=== PATIENT | male | born 1960 | race Caucasian/White ===

== ENCOUNTER → 2016-11-24 | Outpatient (CLI) | payer BC ==
--- NOTE | 2016-11-24 20:52 | US ---
EXAMINATION TYPE: US kidneys/renal and bladder DATE OF EXAM: 11/24/2016 COMPARISON: NONE CLINICAL HISTORY: R31.29 Microscopic Hematuria, R10.9 Abd Pain. EXAM MEASUREMENTS: Right Kidney: 12.0 x 6.8 x 4.7 cm Left Kidney: 12.0 x 6.7 x 6.5 cm Right Kidney: Two cysts visualized, largest measuring 1.9 x 1.6 x 1.4 cm Left Kidney: Multiple cysts visualized, largest measuring 6.0 x 6.2 x 6.1 cm Bladder: wnl Bilateral Jets seen: Yes IMPRESSION: There are bilateral ureteral jets. No evidence of solid renal mass or obstruction. Multiple renal cor tical cysts.
== END | disposition home or self-care (01) ==
LOC: RADUSMAIN 17:47
PROVIDERS: ATTEND Family Medicine
DX: N28.1 Cyst of kidney, acquired (principal); Z96.0 Presence of urogenital implants
CPT/HCPCS: 76770

== ENCOUNTER → 2017-08-28 | Outpatient (CLI) | payer BC ==
--- NOTE | 2017-08-28 23:23 | MR ---
EXAMINATION TYPE: MR knee RT wo con DATE OF EXAM: 08/28/2017 COMPARISON: NONE HISTORY: Right Knee swelling with pain for many years TECHNIQUE: Multiplanar, multisequence imaging of the right knee is performed without IV contrast. FINDINGS: The anterior and posterior cruciate ligaments appear intact. There is some anterior displacement of t he anterior cruciate ligament with an apparent 2.3 x 1.3 cm synovial cyst. There is a moderate knee j oint effusion. There is septated 1 cm popliteal cyst. There is hypertrophic spurring of the medial fe moral and tibial condyles. The collateral ligaments are intact. There is significant thinning of the entire medial meniscus which shows medial displacement. There is horizontal and vertical tears in the anterior horn of the lateral meniscus. The posterior horn lateral meniscus appears intact. I see no fracture. IMPRESSION: Osteoarthritic changes in the medial joint space with significant thinning and mild displacement of t he medial meniscus. Small tears in the anterior horn lateral meniscus. Knee joint effusion. There is evidence of a synovial cyst in the intercondylar notch with displacemen t of the anterior cruciate ligament. There are complex tears of the medial meniscus involving posteri or horn.
== END | disposition home or self-care (01) ==
LOC: RADMRIMAIN 18:30
PROVIDERS: ATTEND Orthopaedic Surgery Adult Reconstructive Orthopaedic Surgery
DX: S83.231A Complex tear of medial meniscus, current injury, right knee, initial encounter (principal); S83.281A Other tear of lateral meniscus, current injury, right knee, initial encounter; M17.11 Unilateral primary osteoarthritis, right knee; M71.38 Other bursal cyst, other site

== ENCOUNTER → 2020-12-02 | Outpatient (CLI) | payer BC ==
--- NOTE | 2020-12-02 16:18 | XR ---
Right RIBS and chest x-ray HISTORY: Intercostal pain Frontal view of the chest and 4 views the right ribs, no comparisons There is possible spinal curvature, patient is rotated. There is no evident displaced rib fracture. N o evident pneumothorax or pleural effusion. Cardiac mediastinal silhouette is within normal limits. N o evident airspace disease. IMPRESSION: No acute abnormality. If occult fracture is suspected clinically then bone scan may be of benefit to assess for occult fracture.
== END | disposition home or self-care (01) ==
LOC: RADXRYALE 15:28
PROVIDERS: ATTEND Physician Assistant Medical
DX: R07.82 Intercostal pain (principal)

== ENCOUNTER 2020-12-10 08:36 | Day surgery (SDC) | payer BC ==
[~2020-12-10 08:36] MED LIST: LACTATED RINGERS 1,000 ML IV SCH
[2020-12-10] MEDS ORDERED: LIDOCAINE 1% (10MG/ML) FOR IV START INTRADERMA ONE (09:04)
[2020-12-10 09:18] VITALS: RESP 16; TEMP 97.3
[2020-12-10] MEDS ORDERED: PROPOFOL 10 MG/ML 20 ML VIAL IV ONE (09:56)
[2020-12-10] MEDS ORDERED: LIDOCAINE 1% INJ 10MG/ML (20 ML MDV) ONE (09:56)
--- NOTE | 2020-12-10 10:35 | P.PCN ---
Date of Procedure: 12/10/20 Description of Procedure: BRIEF HISTORY: Patient is a 60-year-old male presenting for outpatient colonoscopy for history of adenoma. Patient has a personal history of colon polyps. Last colonoscopy 6 years ago. Denies any change in bowel habits or abdominal pain. PROCEDURE PERFORMED: Colonoscopy with polypectomy. PREOPERATIVE DIAGNOSIS: History of adenoma, last colonoscopy 6 years ago. ESTIMATED BLOOD LOSS: Minimal. IV sedation per Anesthesia. PROCEDURE: After informed consent was obtained, the patient, was brought into the endoscopy unit. IV sedation was administered by Anesthesia under continuous monitoring. Digital rectal examination was normal. Initially the Olympus CF-190 flexible video colonoscope was then inserted in the rectum, gradually advanced into the cecum without any difficulty. Careful examination was performed as the scope was gradually being withdrawn. Ileocecal valve and the appendiceal orifice were visualized and appeared normal. Prep was excellent. Mucosa of the cecum, ascending colon, transverse colon, descending colon, sigmoid colon, and rectum appeared normal. 2 polyps measuring 4-5 mm in size removed from ascending colon and descending colon with cold snare polypectomy. Diminutive transverse colon polyp removed with cold forcep polypectomy. A few scattered sigmoid diverticula noted. Retroflexion was performed in the rectum and no lesions were seen. The patient tolerated the procedure well. IMPRESSION: 2 small polyps removed with cold snare polypectomy from the ascending and descending colon. Diminutive traverse colon polyp removed with cold forcep polypectomy. Mild sigmoid diverticulosis. RECOMMENDATIONS: Findings of this examination were discussed with the patient and his family. Okay to resume diet. Okay to resume medications. Await pathology from polypectomies. Recommend repeat colonoscopy in 5 years for personal history of colon polyps, pending pathology from biopsies..
[2020-12-10 10:51] VITALS: BP 145/94; PULSE 60
== END 2020-12-10 11:05 | disposition home or self-care (01) ==
LOC: ORWHC2ENDO 08:36
PROVIDERS: ATTEND Internal Medicine
DX: Z12.11 Encounter for screening for malignant neoplasm of colon (principal); D12.2 Benign neoplasm of ascending colon; D12.3 Benign neoplasm of transverse colon; D12.4 Benign neoplasm of descending colon; K57.30 Diverticulosis of large intestine without perforation or abscess without bleeding; Z86.010 Personal history of colon polyps; J45.20 Mild intermittent asthma, uncomplicated; M19.90 Unspecified osteoarthritis, unspecified site; Z98.890 Other specified postprocedural states; Z79.1 Long term (current) use of non-steroidal anti-inflammatories (NSAID)
CPT/HCPCS: 88305; 45380; 45385; J2001; J2704

== ENCOUNTER → 2022-02-24 | Outpatient (CLI) | payer OTHER ==
--- NOTE | 2022-02-24 09:26 | CT ---
EXAM: CT Chest With Intravenous Contrast CLINICAL HISTORY: Lung nodule. TECHNIQUE: Axial computed tomography images of the chest with intravenous contrast. CTDI is 13.7 mGy and DLP is 588 mGy-cm. This CT exam was performed using one or more of the following dose reduction techniques: automated exposure control, adjustment of the mA and/or kV according to patient size, and/or use of iterative reconstruction technique. COMPARISON: No relevant prior studies available. FINDINGS: Lungs: Lungs are normally inflated. There is a well-circumscribed noncalcified 6 mm pulmonary nodule in the left lower lobe (image 46 of series 4), a 4 mm noncalcified pulmonary nodule in the right lower lobe (image 37 of series 4) and a 3 mm noncalcified pulmonary nodule in the right lower lobe (image 45 of series 4). No airspace consolidation. No pulmonary edema. Minimal scarring or atelectasis seen in the lingula. Pleural space: Unremarkable. No pneumothorax. No significant effusion. Heart: Unremarkable. No cardiomegaly. No significant pericardial effusion. No significant coronary artery calcifications. Bones/joints: Unremarkable. No acute fracture. No dislocation. Soft tissues: Limited evaluation of the upper abdomen shows bilateral renal cysts, including a simple appearing left renal cyst measuring more than 10 cm in diameter. Vasculature: Unremarkable. No thoracic aortic aneurysm. Lymph nodes: Unremarkable. No enlarged lymph nodes. IMPRESSION: Noncalcified pulmonary nodules seen in both lower lobes, with the largest measuring up to 6 mm in diameter. Recommend follow-up CT chest within 6 months for reevaluation. No airspace consolidation, pulmonary edema, pleural effusion or pneumothorax.
== END | disposition home or self-care (01) ==
LOC: RADCTMAIN 06:11
PROVIDERS: ATTEND Family Medicine
DX: D14.30 Benign neoplasm of unspecified bronchus and lung (principal); R93.89 Abnormal findings on diagnostic imaging of other specified body structures
CPT/HCPCS: 71260; Q9967

== ENCOUNTER → 2022-03-16 | Outpatient (CLI) | payer OTHER ==
--- NOTE | 2022-03-17 09:19 | CA ---
Transthoracic Echo Report Name: Jeffry Molina Age: 61 Gender: M : 1960 Exam Date: 03/16/2022 14:54 Exam Location: [facility] Ht (in): 72 Wt (lb): 230 Ordering Physician: Hansel Gómez DO Attending/Referring Phys: Hansel Gómez DO Impression Printer Yvette Carlton, EDD Procedure CPT: Indications: R93.89 ABNORMAL FINDINGS ON DX IMAGING OF O D14.30 Cardiac Hx: Technical Quality: Good Contrast 1: Total Dose (mL): Contrast 2: Total Dose (mL): MEASUREMENTS (Male / Female) Normal Values 2D ECHO LV Diastolic Diameter PLAX 5.3 cm 4.2 - 5.9 / 3.9 - 5.3 cm LV Systolic Diameter PLAX 4.0 cm IVS Diastolic Thickness 1.1 cm 0.6 - 1.0 / 0.6 - 0.9 cm LVPW Diastolic Thickness 1.2 cm 0.6 - 1.0 / 0.6 - 0.9 cm LV Relative Wall Thickness 0.4 RV Internal Dim ED PLAX 4.5 cm LA Systolic Diameter LX 4.1 cm 3.0 - 4.0 / 2.7 - 3.8 cm LA Volume 68.1 cm??? 18 - 58 / 22 - 52 cm??? M-MODE Aortic Root Diameter MM 3.9 cm LA Systolic Diameter MM 4.2 cm LA Ao Ratio MM 1.1 MV E Point Septal Separation 0.6 cm AV Cusp Separation MM 2.5 cm DOPPLER MV Area PHT 3.2 cm??? Mitral E Point Velocity 47.5 cm/s Mitral A Point Velocity 64.4 cm/s Mitral E to A Ratio 0.7 MV Deceleration Time 238.4 ms MV E' Velocity 5.6 cm/s Mitral E to MV E' Ratio 8.5 FINDINGS Left Ventricle Low normal left ventricular systolic function was EF around 50% Right Ventricle The right ventricle is normal in size and function. Right Atrium The right atrium is normal in size. Left Atrium Mildly increased left atrial volume. Mitral Valve Structurally normal mitral valve without significant stenosis or prolapse. There is trace mitral regurgitation. Aortic Valve Structurally normal aortic valve without significant sclerosis or stenosis. There is no aortic regurgitation. Tricuspid Valve Structurally normal tricuspid valve without significant stenosis. Pulmonary artery systolic pressure is normal. Pulmonic Valve Structurally normal pulmonic valve without significant stenosis. There is no pulmonic regurgitation. Pericardium Normal pericardium without effusion. Aorta Normal aortic root dimension. CONCLUSIONS Low normal left ventricular systolic function was EF around 50% Previewed by: Dr. Reji Goff MD (Electronically Signed) Final Date: 17 March 2022 09:18
== END | disposition home or self-care (01) ==
LOC: RADECHMAIN 14:52
PROVIDERS: ATTEND Family Medicine
DX: R93.89 Abnormal findings on diagnostic imaging of other specified body structures (principal); D14.30 Benign neoplasm of unspecified bronchus and lung
CPT/HCPCS: 93306

== ENCOUNTER → 2022-12-01 | Outpatient (CLI) | payer OTHER ==
--- NOTE | 2022-12-01 09:10 | CT ---
EXAMINATION TYPE: CT chest wo con CT DLP: 543.10 mGycm, Automated exposure control for dose reduction was used. DATE OF EXAM: 12/01/2022 9:02 AM COMPARISON: CT chest 02/24/2022 CLINICAL INDICATION:Male, 62 years old with history of R91.1 R91.8; PHH, Solitary pulmonary nodule, O ther non specific abnormal finding of lung TECHNIQUE: Multiple axial images were obtained through the chest without IV contrast. Lack of IV or o ral contrast limits evaluation of solid and hollow organ viscera. . Coronal and sagittal reformats re viewed. FINDINGS: LUNGS/ PLEURA: No pleural effusion, pneumothorax, focal consolidation. Stable 5 mm left lower lobe pu lmonary nodule (series 4, image 45). Stable 3 mm right lower lobe pulmonary nodule (series 4, image 43). Stable right lower lobe 4 more pulmonary nodule (series 4, age 33). No new or enlarging pulmonar y nodules. AIRWAY: Patent and unremarkable.. HEART: Size within normal limits. No pericardial effusion. MEDIASTINUM: No gross evidence of adenopathy. VASCULATURE: No aortic aneurysm. MUSCULOSKELETAL: No acute osseous abnormalities. Redemonstration of metallic density within the left scapula. SOFT TISSUES/LYMPH NODES: Unremarkable. LOWER NECK: Stable 1.6 cm hypodense nodule within the left thyroid lobe.. UPPER ABDOMEN: Bilateral renal cysts are partially visualized again. The largest measures at least 9. 9 cm and the left kidney. IMPRESSION: 1. Stable few pulmonary nodules measuring up to 5 mm. No new or enlarging pulmonary nodules. 2. Stable 1.6 hypodense nodule within left thyroid lobe. This can be further evaluated with thyroid u ltrasound.
== END | disposition home or self-care (01) ==
LOC: RADCTMAIN 08:38
PROVIDERS: ATTEND Family Medicine
DX: R91.8 Other nonspecific abnormal finding of lung field (principal)
CPT/HCPCS: 71250